=== PATIENT | male | born 1955 | race Caucasian/White ===

== ENCOUNTER 2017-04-22 15:24 | Emergency (ER) | payer BC | END 2017-04-22 17:57 | disposition left against medical advice (07) | LOC: UCEAST 15:24 | DX: M25.569 Pain in unspecified knee (principal); Z53.21 Procedure and treatment not carried out due to patient leaving prior to being seen by health care provider ==

== ENCOUNTER 2017-04-22 15:26 | Emergency (ER) | payer BC ==
--- NOTE | 2017-04-22 16:21 | UC ---
Knee Pain HPI - HPI Summary HPI Summary: 61 YEAR OLD MALE PRESENTS WITH COMPLAINS RIGHT KNEE PAIN/SWELLING. - History of Current Complaint Stated Complaint: KNEE PAIN Time Seen by Provider: 04/22/17 16:14 Hx Obtained From: Patient Onset/Duration: Sudden Onset Severity Initially: Moderate Severity Currently: Moderate Pain Scale Used: 0-10 Numeric - 7 Character: Sharp, Throbbing Aggravating Factor(s): Movement Alleviating Factor(s): Position - Allergies/Home Medications Allergies/Adverse Reactions: Allergies Allergy/AdvReac Type Severity Reaction Status Date / Time No Known Allergies Allergy Verified 04/22/17 16:27 Home Medications: Home Medications Indomethacin CAP* [Indocin CAP*] 50 mg PO TID PRN 04/22/17 [History Confirmed ] PMH/Surg Hx/FS Hx/Imm Hx Previously Healthy: Yes - Surgical History Surgical History: None - Family History Known Family History: Positive: None - Social History Alcohol Use: Rare Substance Use Type: None Review of Systems Constitutional: Negative Skin: Negative Eyes: Negative ENT: Negative Respiratory: Negative Cardiovascular: Negative Gastrointestinal: Negative Genitourinary: Negative Motor: Negative Neurovascular: Negative Musculoskeletal: Other: - RIGHT KNEE SWELLING/PAIN Neurological: Negative Psychological: Negative All Other Systems Reviewed And Are Negative: Yes Physical Exam Triage Information Reviewed: Yes Eye Exam: Normal ENT Exam: Normal Dental Exam: Normal Neck exam: Normal Neck: Positive: 1 Respiratory Exam: Normal Cardiovascular Exam: Normal Abdominal Exam: Normal Musculoskeletal: Positive: Other: - RIGHT KNEE SWELLING/PAIN Neurological Exam: Normal Psychological Exam: Normal Skin Exam: Normal Knee Pain Course/Dx - Differential Dx/Diagnosis Provider Diagnoses: RIGHT KNEE SWELLING/PAIN Discharge - Discharge Plan Condition: Stable Disposition: HOME Prescriptions: predniSONE TAB* [Deltasone TAB*] 40 mg PO DAILY #10 tab Patient Education Materials: Swollen Knee Joint (ED) Referrals: Jose Ortiz MD [Primary Care Provider] - If Needed Additional Instructions: PLEASE GO TO ER IF KNEE SWELLING WORSENS
[2017-04-22] MEDS ORDERED: methylPREDNISolone 125 MG* 2 ML VIAL IM ONE (16:22)
[2017-04-22 16:28] VITALS: BP 124/88
--- NOTE | 2017-04-22 17:13 | RAD ---
HISTORY: Right knee swelling COMPARISONS: None VIEWS: 4, Frontal, lateral, axial, and oblique views of the right knee FINDINGS: BONE DENSITY: Normal. BONES: There is no displaced fracture. JOINTS: There is no arthropathy. There is a large suprapatellar joint effusion. There is no lipohemarthrosis. ALIGNMENT: There is no dislocation. SOFT TISSUES: Unremarkable. OTHER FINDINGS: None. IMPRESSION: NO ACUTE OSSEOUS INJURY. JOINT EFFUSION. IF SYMPTOMS PERSIST, RECOMMEND REPEAT IMAGING.
== END 2017-04-22 17:23 | disposition home or self-care (01) ==
LOC: UCCORT 15:26
DX: M25.561 Pain in right knee (principal); M25.461 Effusion, right knee
CPT/HCPCS: 96372; 99202; G0463; J2930

== ENCOUNTER 2017-11-14 14:01 | Emergency (ER) | payer BC, OTHER ==
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
[2017-11-14 15:32] VITALS: BP 00/00
== END 2017-11-14 15:30 | disposition home or self-care (01) ==
LOC: ED 14:01
DX: S09.90XA Unspecified injury of head, initial encounter (principal); R51 Headache; V49.9XXA Car occupant (driver) (passenger) injured in unspecified traffic accident, initial encounter; Y92.410 Unspecified street and highway as the place of occurrence of the external cause
CPT/HCPCS: 70450; 99281

== ENCOUNTER 2018-10-07 11:23 | Emergency (ER) | payer BC, OTHER ==
[2018-10-07 12:17] VITALS: BP 127/83
--- NOTE | 2018-10-07 12:39 | UC ---
Lower Extremity/Ankle HPI - HPI Summary HPI Summary: 63 y/o male presents to the urgent care c/o left ankle pain w/ swelling and redness for the past 4 weeks. Pt with PMHX of Gout. He went to see PCP who Rx Indomethacin PO, However not taking other medications for Gout. Pt here requesting a SoluMedrol IM inj 125 which was given here at the clinic last year and his Gout completely resolved. Pain with walking is 5/10. Pt has been taking Indometacin w/o any improvement. Pt denies fever, calf pain, SOB, chest pain, abdominal pain, N/V/d. numbness or tingling sensation over the left extremity or previous injury. - History of Current Complaint Chief Complaint: UCLowerExtremity Stated Complaint: LEG SWELLING Time Seen by Provider: 10/07/18 12:37 Hx Obtained From: Patient Onset/Duration: Gradual Onset, Lasting Weeks - 4 weeks, Still Present, Worse Since - last week Severity Initially: Mild Severity Currently: Moderate Pain Intensity: 4 Pain Scale Used: 0-10 Numeric Aggravating Factor(s): Ambulation Alleviating Factor(s): Rest, OTC Meds - Indomethacin PO Able to Bear Weight: Yes - Risk Factors Gout Risk Factors: Age Over 40, Male DVT Risk Factors: Negative Septic Arthritis Risk Factor: Negative - Allergies/Home Medications Allergies/Adverse Reactions: Allergies Allergy/AdvReac Type Severity Reaction Status Date / Time Penicillins Allergy Hives Verified 10/07/18 12:18 PMH/Surg Hx/FS Hx/Imm Hx Previously Healthy: Yes Other Endocrine History: Gout - Surgical History Surgical History: None - Family History Known Family History: Positive: Diabetes - Social History Occupation: Employed Full-time Lives: With Family Alcohol Use: Rare Substance Use Type: None Smoking Status (MU): Never Smoked Tobacco Review of Systems All Other Systems Reviewed And Are Negative: Yes Constitutional: Positive: Negative Skin: Positive: Other - left ankel swelling and pain Eyes: Positive: Blurred Vision ENT: Positive: Negative Respiratory: Positive: Negative Cardiovascular: Positive: Negative Gastrointestinal: Positive: Negative Genitourinary: Positive: Negative Motor: Positive: Negative Neurovascular: Positive: Negative Musculoskeletal: Positive: Decreased ROM - left ankle, Other: - left ankle pain Neurological: Positive: Negative Psychological: Positive: Negative Is Patient Immunocompromised?: No Physical Exam - Summary Physical Exam Summary: Vital Signs Reviewed: Yes General: well developed, well nourished male, sitting in the examining table w/ o any apparent distress Eyes: Positive: Conjunctiva Clear - PERRLA, EOMI, ENT: Positive: Normal ENT inspection, Hearing grossly normal, Pharynx normal, TMs normal Neck: Positive: Supple, Nontender, No Lymphadenopathy Respiratory: Positive: Chest non-tender, Lungs clear, Normal breath sounds, No respiratory distress Cardiovascular: Positive: RRR, No Murmur, Pulses Normal, Brisk Capillary Refill Abdomen Description: Positive: Nontender, No Organomegaly, Soft. Negative: CVA Tenderness (R), CVA Tenderness (L) Bowel Sounds: Positive: Present Musculoskeletal: - Ankle: Pt is able to bear weight and ambulate w/o limping. The L ankle is without obvious asymmetry or deformity when compared to the R ankle. Decreased ROM due to pain. Moderate swelling at both malleolus, with tenderness to palpation, warm to toucha nd mild erythema. No ecchymosis or bruising observed. Talar tilt test is negative for ligament laxity to valgus or varus stress. Negative anterior drawer. Peroneal nerve is intact with strong eversion and plantar flexion. Positive sensation over the Rt foot and Rt ankle, positive pulses, capillary refill intact Neurological Exam: Normal Psychological Exam: Normal Skin: warm and dry Triage Information Reviewed: Yes Vital Signs: Initial Vital Signs Temp 96.8 F 10/07/18 12:14 Pulse 72 10/07/18 12:14 Resp 18 10/07/18 12:14 BP 127/83 10/07/18 12:14 Pulse Ox 100 10/07/18 12:14 Lower Extremity Course/Dx - Course Course Of Treatment: 63 y/o male presents to the urgent care c/o left ankle pain w/ swelling and redness for the past 4 weeks. Pt with PMHX of Gout. He went to see PCP who Rx Indomethacin PO, However not taking other medications for Gout. Pt here requesting a SoluMedrol IM inj 125 which was given here at the clinic last year and his Gout completely resolved. Pain with walking is 5/ 10. Pt has been taking Indometacin w/o any improvement. Pt denies fever, calf pain, SOB, chest pain, abdominal pain, N/V/d. numbness or tingling sensation over the left extremity or previous injury.Hx obtained. Pt given Solumedrol IM inj at the clinic for for swelling as he resquested since it helped him last year. Pt tolerated well Im inj. Pt advised to continue w/ Indomethacin PO to alleviate symptom. Pt Rx Prednisone PO taper dose as directed below. Pt strongly advised to f/u with his PCP DR Ortiz for further mangement on his Gout. Pt educated on low purine diet. Pt understood and agreed with D/ C instructions and left the clinic ambulating . - Differential Dx/Diagnosis Differential Diagnosis/HQI/PQRI: Arthritis, Cellulitis, Gout, Infection, Sprain , Strain, Tendonitis Provider Diagnosis: Pain and swelling of left ankle, Exacerbation of gout Discharge - Sign-Out/Discharge Documenting (check all that apply): Patient Departure - D/C home All imaging exams completed and their final reports reviewed: No Studies - Discharge Plan Condition: Stable Disposition: HOME Prescriptions: predniSONE TAB* [Deltasone 20 MG TAB*] 20 mg PO DAILY #11 tab Patient Education Materials: Low Purine Diet (ED), Gout (ED) Referrals: Jose Ortiz MD [Primary Care Provider] - 1 Week Additional Instructions: 1-You were given today a Solumedrol IM inj and Please take Prednisone PO taper dose starting tomorrow as directed to alleviate swelling. 2-Continue taking Indomethacin PO after meals as directed by your PCP. Avoid strenuous exercise or standing for long periods of time. Elevate your ankle 3-Please f/u with your PCP in 2-3 days if not improvement of symptoms for further evaluation and treatment on your gout 4-Please encourage a low purine diet to help decrease uric acid levels - Billing Disposition and Condition Condition: STABLE Disposition: Home
[2018-10-07] MEDS ORDERED: methylPREDNISolone 125 MG* 2 ML VIAL IM ONE (12:51)
== END 2018-10-07 13:27 | disposition home or self-care (01) ==
LOC: UCEAST 11:23
DX: M25.572 Pain in left ankle and joints of left foot (principal); M25.472 Effusion, left ankle; M10.072 Idiopathic gout, left ankle and foot; Z88.0 Allergy status to penicillin
CPT/HCPCS: 96372; 99212; G0463; J2930

== ENCOUNTER 2019-02-05 10:26 | Emergency (ER) | payer BC ==
[2019-02-05 10:42] VITALS: BP 111/78
[2019-02-05] MEDS ORDERED: Ipratropium 0.5MG/2.5ML NEB* 0.5 MG/2.5 ML NEB.SOLN INH ONE (10:53)
[2019-02-05] MEDS ORDERED: Albuterol 2.5 MG/3 ML NEB.SOL* (0.083%) INH ONE (10:53)
--- NOTE | 2019-02-05 11:27 | UC ---
Throat Pain/Nasal Bob HPI - HPI Summary HPI Summary: The patient is a 63-year-old male with a history of pulmonary sarcoidosis who presents here with a 10 day history of intermittent cough ,congestion ,sore throat and wheezes. He denies any fever or chills. His never had to use an inhaler in the past. He states that his cough and wheezing has markedly worsened the past day or so. - History of Current Complaint Chief Complaint: UCGeneralIllness Stated Complaint: SORE THROAT Time Seen by Provider: 02/05/19 10:44 Hx Obtained From: Patient Onset/Duration: Gradual Onset, Lasting Days Severity: Moderate Pain Intensity: 0 Pain Scale Used: 0-10 Numeric Cough: Productive Associated Signs & Symptoms: Positive: Wheezing - Epiglottits Risk Factors Epiglottis Risk Factors: Negative - Allergies/Home Medications Allergies/Adverse Reactions: Allergies Allergy/AdvReac Type Severity Reaction Status Date / Time Penicillins Allergy Hives Verified 02/05/19 10:33 Home Medications: Home Medications Allopurinol TAB* [Zyloprim 300 MG TAB*] 300 mg PO DAILY 02/05/19 [History Confirmed 02/05/19] PMH/Surg Hx/FS Hx/Imm Hx Previously Healthy: Yes - gout/sarcoidosis GI/ History: Kidney Stones - Surgical History Surgical History: None - Family History Known Family History: Positive: Cardiac Disease, Hypertension, Diabetes - Social History Alcohol Use: None Substance Use Type: None Smoking Status (MU): Never Smoked Tobacco Review of Systems All Other Systems Reviewed And Are Negative: Yes Constitutional: Positive: Fatigue Skin: Positive: Negative Eyes: Positive: Negative ENT: Positive: Sore Throat, Nasal Discharge, Sinus Congestion Respiratory: Positive: Cough, Other - wheezing Cardiovascular: Positive: Negative Gastrointestinal: Positive: Negative Genitourinary: Positive: Negative Motor: Positive: Negative Neurovascular: Positive: Negative Musculoskeletal: Positive: Negative Neurological: Positive: Negative Psychological: Positive: Negative Physical Exam Triage Information Reviewed: Yes Appearance: Well-Appearing, No Pain Distress, Well-Nourished Vital Signs: Initial Vital Signs Temp 98.8 F 02/05/19 10:34 Pulse 76 02/05/19 10:34 Resp 20 02/05/19 10:34 BP 111/78 02/05/19 10:34 Pulse Ox 96 02/05/19 10:34 Eye Exam: Normal Eyes: Positive: Conjunctiva Clear ENT: Positive: Hearing grossly normal, Nasal congestion, TMs normal, Uvula midline. Negative: Nasal drainage, Tonsillar swelling, Tonsillar exudate, Trismus, Muffled voice, Hoarse voice, Sinus tenderness Neck: Positive: Supple, Nontender, No Lymphadenopathy Respiratory: Positive: No respiratory distress, No accessory muscle use, Wheezing Cardiovascular: Positive: RRR, No Murmur Musculoskeletal: Positive: ROM Intact, No Edema Neurological: Positive: Alert Psychological Exam: Normal Skin Exam: Normal Diagnostics - Radiology No standard instances Radiology Interpretation Completed By: Radiologist Summary of Radiographic Findings: DIFFUSE MIXED INTERSTITIAL AND AIRSPACE DISEASE, CONSISTENT WITH THE HISTORY OF. SARCOIDOSIS. THE CHRONIC UNDERLYING CHANGES PRECLUDES EVALUATION FOR SUPERIMPOSED ACUTE. PROCESS IN THE ABSENCE OF COMPARISON TO PREVIOUS EXAMINATION. RECOMMEND COMPARISON TO. PRIOR STUDIES IF AVAILABLE. Throat Pain/Nasal Course/Dx - Differential Dx/Diagnosis Provider Diagnosis: Bronchitis with bronchospasm, Sarcoidosis Discharge - Sign-Out/Discharge Documenting (check all that apply): Patient Departure All imaging exams completed and their final reports reviewed: Yes - Discharge Plan Condition: Stable Disposition: HOME Prescriptions: DOXYcycline CAP(*) [DOXYcycline 100MG CAP(*)] 100 mg PO BID #14 cap predniSONE [Deltasone 20 MG TAB] 40 mg PO DAILY #10 tab Patient Education Materials: Acute Bronchitis (ED), How to Use a Metered-Dose Inhaler and a Spacer (ED) Referrals: Jose Ortiz MD [Primary Care Provider] - 4 Days (if not improved) Additional Instructions: I suggest you call your pulmonalogist to make an appt Take copies of xray on disc so they may be compared to prior films recheck for new or worsening symptoms - Billing Disposition and Condition Condition: STABLE Disposition: Home
[2019-02-05] MEDS ORDERED: Albuterol HFA INHALER* 8 gm MDI INH ONE (11:55)
[2019-02-05] MEDS ORDERED: predniSONE TAB* 20 MG PO ONE (11:55)
== END 2019-02-05 12:15 | disposition home or self-care (01) ==
LOC: UCEAST 10:26
DX: J40 Bronchitis, not specified as acute or chronic (principal); D86.9 Sarcoidosis, unspecified
CPT/HCPCS: 71046; 87651; 99212; A9270-GY; G0463; J7512